=== PATIENT | female | born 1990 | race Caucasian/White ===

== ENCOUNTER 2017-12-13 21:28 | Emergency (ER) | payer SELFPAY ==
[~2017-12-13] VITALS: Ht 162.6 cm; Wt 55.0 kg
[~2017-12-13 21:28] MED LIST: BUPR2SUB PO; CLON-352 PO; IBUP600 PO
[2017-12-13 21:31] VITALS: BP 136/70; PULSE 114; RESP 18; TEMP 99.6; O2SAT 100
--- NOTE | 2017-12-13 22:09 | PD ---
HPI Chief Complaint: Skin Problem Time Seen by Provider: 21:48 Travel History International Travel<30 days: No Contact w/Intl Traveler<30days: No Traveled to known affect area: No History of Present Illness HPI Patient is a 27-year-old female presenting to emergency for evaluation of skin lesions. Patient admits to IV drug use, specifically heroin. She states for the last 2 weeks she's had lesions that initially developed on her face, spreading to her arms and legs and 2 days ago to the outer labia. Patient states that she was able to drain lesion on her labia yesterday. Since then 2 more lesions have developed. She denies any fever, chills, nausea, vomiting, abdominal pain or chest pain. Patient states that she picks at the lesions. She states that after she picks they have a honey colored crust and never completely heal. Patient states the lesions on her labia are the most painful at a 5 out of 10. The other areas are not painful. Them onset was gradual, exacerbating factors include picking. There are no alleviating factors. PFSH Past Medical History Anemia: Yes Medical other: Yes (IV drug use) Tetanus Vaccination: < 5 Years Influenza Vaccination: No ?: Not LMP: 12/03/2017 : 3 Para: 0 Past Surgical History Surgical History: No Previous Surgery Social History Alcohol Use: Yes (occasionally) Tobacco Use: No Substance Use: Yes (IV drug use opiods, heroin) Allergies-Medications (Allergen,Severity, Reaction): Coded Allergies: No Known Allergies (Unverified Adverse Reaction, Unknown, 12/13/17) Reported Meds & Prescriptions Reported Meds & Active Scripts Active Bactrim DS (Sulfamethoxazole-Trimethoprim) 800-160 Mg Tab 1 Tab PO BID Metronidazole 500 Mg Tab 500 Mg PO BID Motrin 600 Mg Tab (Ibuprofen) 600 Mg Tab 600 Mg PO Q6H PRN Reported Buprenorphine 2 mg tab (Buprenorphine HCl) 2 mg Tab 1 Mg PO QID GENERIC SUBUTEX Clonidine HCl ER (Clonidine HCl (Adhd)) 0.1 Mg Tab 0.1 Mg PO DIRECTED PRN Review of Systems Except as stated in HPI: all other systems reviewed are Neg Skin: Positive Lumps, Positive Lesions Physical Exam Narrative GENERAL: Well-developed, well-nourished, alert female. Presenting in no acute distress. SKIN: Warm and dry. Several crusted lesions to face and arms and various stages of healing with honey colored crust. No induration or drainage noted. No warmth noted. Right labia has a drink, no induration, erythema or warmth. There is no fluctuance noted. HEAD: Atraumatic. Normocephalic. EYES: Pupils equal and round. No scleral icterus. No injection or drainage. ENT: No nasal bleeding or discharge. Mucous membranes pink and moist. NECK: Trachea midline. No JVD. CARDIOVASCULAR: Tachycardic. RESPIRATORY: No accessory muscle use. Clear to auscultation. Breath sounds equal bilaterally. GASTROINTESTINAL: Abdomen soft, non-tender, nondistended. Hepatic and splenic margins not palpable. MUSCULOSKELETAL: Extremities without clubbing, cyanosis, or edema. No obvious deformities. NEUROLOGICAL: Awake and alert. No obvious cranial nerve deficits. Motor grossly within normal limits. Five out of 5 muscle strength in the arms and legs. Normal speech. PSYCHIATRIC: Appropriate mood and affect; insight and judgment normal. Data Data Last Documented VS Vital Signs Date Time Temp Pulse Resp B/P (MAP) Pulse Ox O2 Delivery O2 Flow Rate FiO2 12/13/17 22:47 12/13/17 22:32 98.9 95 16 100 Room Air Orders Orders Sulfamet-Trimeth Ds 800-160 Mg (Bactrim (12/13/17 22:45) Metronidazole (Flagyl) (12/13/17 22:45) Ed Discharge Order (12/13/17 22:43) [facility] Medical Decision Making Medical Screen Exam Complete: Yes Emergency Medical Condition: Yes Interpretation(s) Vital Signs Date Time Temp Pulse Resp B/P (MAP) Pulse Ox O2 Delivery O2 Flow Rate FiO2 12/13/17 21:31 99.6 114 18 136/70 (92) 100 Room Air Differential Diagnosis Cellulitis versus abscess versus impetigo versus folliculitis versus other Narrative Course Patient is a 27-year-old female presenting for evaluation of multiple skin lesions. Patient was tachycardic on arrival, she was anxious about coming in. Physical examination appears consistent with impetigo. During the examination she also reported a fishy smelling vaginal discharge for the last 2-3 days, she declined formal pelvic exam but requested metronidazole. There was no significant fluctuance or erythema noted to the labia and an I&D was deferred. Patient will be placed on oral antibiotics at this time. She was encouraged to avoid picking at lesions. She was advised to wash with soap and water only and apply topical abx ointment BID. She was encouraged to return to the Ed for any new or worsening symptoms. Additionally patient should follow up with a PCP or at the [facility]. Pt verbalized understanding. Pt is stable for discharge. VS reassessed prior to discharge and HR is normal. Diagnosis Primary Impression: Impetigo Additional Impression: Vaginal discharge Referrals: [facility] Primary Care Physician [facility] Patient Instructions: General Instructions, Impetigo (ED) Additional Instructions: Follow-up with a primary doctor or at the [facility] Complete full course of antibiotics as prescribed Avoid alcohol while taking metronidazole Return to emergency department for any new or worsening symptoms May apply warm compress to labia Med/Other Pt SpecificInfo: Prescription(s) given Scripts Mupirocin Topical (Mupirocin Topical) 2 % Oint 1 APPLIC TOPICAL BID for Mgmt Bacterial Infection, #22 GM 0 Refills Prov: Bernadine Reyes 12/13/17 Sulfamethoxazole-Trimethoprim (Bactrim DS) 800-160 Mg Tab 1 TAB PO BID for Infection, #20 TAB 0 Refills Prov: Bernadine Reyes 12/13/17 Metronidazole (Metronidazole) 500 Mg Tab 500 MG PO BID for Infection, #14 TAB 0 Refills Prov: Bernadine Reyes 12/13/17 Disposition: 01 DISCHARGE HOME Condition: Stable Bernadine Reyes Dec 13, 2017 22:09
[2017-12-13 22:32] VITALS: PULSE 95; RESP 16; TEMP 98.9; O2SAT 100
[2017-12-13] MEDS ORDERED: DALBAVANCIN INJ 1,500 MG in DEXTROSE 5% IN WATE 500 ML INJ 500 ML IV STA ×2 (22:42)
[2017-12-13] MEDS ORDERED: BACT800T5 PO (22:43)
[2017-12-13] MEDS ORDERED: METR1TAB76 PO (22:43)
[2017-12-13] MEDS ORDERED: metroNIDAZOLE 500 MG TAB PO ONE (22:45)
[2017-12-13] MEDS ORDERED: SULFAMETHOXAZOLE-TRIMETHOPRIM DS 800-160 MG TAB PO ONE (22:45)
[2017-12-13] MEDS ORDERED: MUPI2OIN TOPICAL (22:52)
== END 2017-12-13 22:57 | disposition home or self-care (01) ==
LOC: NEPD 21:28
DX: L01.00 Impetigo, unspecified (principal); N89.8 Other specified noninflammatory disorders of vagina; R00.0 Tachycardia, unspecified; D64.9 Anemia, unspecified; Z79.899 Other long term (current) drug therapy
CPT/HCPCS: 99283

== ENCOUNTER 2017-12-27 11:36 | Emergency (ER) | payer OTHER ==
[~2017-12-27] VITALS: Ht 162.6 cm; Wt 48.0 kg
[~2017-12-27 11:36] MED LIST changes: +BACT800T5 PO; +METR1TAB76 PO; +MUPI2OIN TOPICAL
[2017-12-27 11:44] VITALS: BP 120/81; PULSE 86; RESP 15; TEMP 98; O2SAT 99
--- NOTE | 2017-12-27 12:12 | PD ---
HPI Chief Complaint: Psychiatric Symptoms Time Seen by Provider: 12:02 Travel History International Travel<30 days: No Contact w/Intl Traveler<30days: No Traveled to known affect area: No History of Present Illness HPI The patient is a 27-year-old female who presents to the emergency department via [facility]'s office as a Watson act. The patient apparently made comments that she wishes she could and that she was withdrawing from heroin. The patient states she does have a history of previous suicidal thoughts, denies any actual suicide plan. She does have a history of heroin abuse, last used heroin 24 hours ago. She has been to rehabilitation twice in the past, last rehabilitation stent was in August. She denies any alcohol ingestion. She denies any hallucinations or delusions. Symptoms are moderate. She denies any current nausea, vomiting, diarrhea, or diaphoresis. PFSH Past Medical History Anemia: Yes Anxiety: Yes Diminished Hearing: No Psychiatric: Yes Tetanus Vaccination: < 5 Years Influenza Vaccination: No ?: Unknown LMP: 11/28/17 : 3 Para: 1 : 2 Past Surgical History Surgical History: No Previous Surgery Social History Alcohol Use: Yes (occasionally) Tobacco Use: Yes Substance Use: Yes (IV drug use opiods, heroin) Allergies-Medications (Allergen,Severity, Reaction): Coded Allergies: No Known Allergies (Verified Allergy, Unknown, 12/27/17) Reported Meds & Prescriptions Reported Meds & Active Scripts Active No Active Prescriptions or Reported Medications Review of Systems Except as stated in HPI: all other systems reviewed are Neg General / Constitutional: No: Fever HENT: No: Rhinorrhea Cardiovascular: No: Chest Pain or Discomfort, Diaphoresis Respiratory: No: Shortness of Breath Gastrointestinal: No: Nausea, Vomiting, Abdominal Pain Musculoskeletal: No: Weakness Psychiatric: Positive: Suicidal Ideations, Substance Abuse Physical Exam Narrative GENERAL: Awake, alert, pleasant 27-year-old female who appears her stated age is in no acute respiratory distress. SKIN: Focused skin assessment warm/dry. HEAD: Atraumatic. Normocephalic. EYES: Pupils equal and round. 4 mm bilateral and reactive. ENT: No nasal bleeding or discharge. Mucous membranes pink and moist. NECK: Trachea midline. No JVD. CARDIOVASCULAR: Regular rate and rhythm. No murmur appreciated. RESPIRATORY: No accessory muscle use. Clear to auscultation. Breath sounds equal bilaterally. MUSCULOSKELETAL: No obvious deformities. No clubbing. No cyanosis. No edema. NEUROLOGICAL: Awake and alert. No obvious cranial nerve deficits. Motor grossly within normal limits. Normal speech. Nonfocal. Oriented 4. PSYCHIATRIC: Appropriate mood and affect; insight and judgment normal. Data Data Last Documented VS Vital Signs Date Time Temp Pulse Resp B/P (MAP) Pulse Ox O2 Delivery O2 Flow Rate FiO2 12/27/17 11:45 86 15 12/27/17 11:44 98.0 120/81 (94) 99 Orders Orders Complete Blood Count With Diff (12/27/17 12:03) Comprehensive Metabolic Panel (12/27/17 12:03) Thyroid Stimulating Hormone (12/27/17 12:03) Psych Screen (12/27/17 12:03) Drug Screen, Random Urine (12/27/17 12:03) Alcohol (Ethanol) (12/27/17 12:03) Free T3 (12/27/17 13:08) Free Thyroxine (T4) (12/27/17 13:08) Labs Laboratory Tests Test 12/27/17 12:00 White Blood Count 3.4 TH/MM3 Red Blood Count 4.84 MIL/MM3 Hemoglobin 13.2 GM/DL Hematocrit 40.4 % Mean Corpuscular Volume 83.4 FL Mean Corpuscular Hemoglobin 27.3 PG Mean Corpuscular Hemoglobin Concent 32.7 % Red Cell Distribution Width 13.5 % Platelet Count 294 TH/MM3 Mean Platelet Volume 8.8 FL Neutrophils (%) (Auto) 62.3 % Lymphocytes (%) (Auto) 27.4 % Monocytes (%) (Auto) 9.3 % Eosinophils (%) (Auto) 0.2 % Basophils (%) (Auto) 0.8 % Neutrophils # (Auto) 2.1 TH/MM3 Lymphocytes # (Auto) 0.9 TH/MM3 Monocytes # (Auto) 0.3 TH/MM3 Eosinophils # (Auto) 0.0 TH/MM3 Basophils # (Auto) 0.0 TH/MM3 CBC Comment DIFF FINAL Differential Comment Blood Urea Nitrogen 9 MG/DL Creatinine 0.83 MG/DL Random Glucose 104 MG/DL Total Protein 9.1 GM/DL Albumin 3.9 GM/DL Calcium Level 9.7 MG/DL Alkaline Phosphatase 73 U/L Aspartate Amino Transf (AST/SGOT) 44 U/L Alanine Aminotransferase (ALT/SGPT) 55 U/L Total Bilirubin 0.2 MG/DL Sodium Level 138 MEQ/L Potassium Level 3.9 MEQ/L Chloride Level 105 MEQ/L Carbon Dioxide Level 24.7 MEQ/L Anion Gap 8 MEQ/L Estimat Glomerular Filtration Rate 81 ML/MIN Free Thyroxine 1.33 NG/DL Free Triiodothyronine (T3) pg/dL 2.01 PG/ML Thyroid Stimulating Hormone 3rd Gen 0.124 uIU/ML Urine Opiates Screen POS Urine Barbiturates Screen NEG Urine Amphetamines Screen NEG Urine Benzodiazepines Screen NEG Urine Cocaine Screen POS Urine Cannabinoids Screen NEG Ethyl Alcohol Level LESS THAN 3 MG/DL MDM Medical Decision Making Medical Screen Exam Complete: Yes Emergency Medical Condition: Yes Medical Record Reviewed: Yes Interpretation(s) Laboratory Tests Test 12/27/17 12:00 White Blood Count 3.4 TH/MM3 Red Blood Count 4.84 MIL/MM3 Hemoglobin 13.2 GM/DL Hematocrit 40.4 % Mean Corpuscular Volume 83.4 FL Mean Corpuscular Hemoglobin 27.3 PG Mean Corpuscular Hemoglobin Concent 32.7 % Red Cell Distribution Width 13.5 % Platelet Count 294 TH/MM3 Mean Platelet Volume 8.8 FL Neutrophils (%) (Auto) 62.3 % Lymphocytes (%) (Auto) 27.4 % Monocytes (%) (Auto) 9.3 % Eosinophils (%) (Auto) 0.2 % Basophils (%) (Auto) 0.8 % Neutrophils # (Auto) 2.1 TH/MM3 Lymphocytes # (Auto) 0.9 TH/MM3 Monocytes # (Auto) 0.3 TH/MM3 Eosinophils # (Auto) 0.0 TH/MM3 Basophils # (Auto) 0.0 TH/MM3 CBC Comment DIFF FINAL Differential Comment Blood Urea Nitrogen 9 MG/DL Creatinine 0.83 MG/DL Random Glucose 104 MG/DL Total Protein 9.1 GM/DL Albumin 3.9 GM/DL Calcium Level 9.7 MG/DL Alkaline Phosphatase 73 U/L Aspartate Amino Transf (AST/SGOT) 44 U/L Alanine Aminotransferase (ALT/SGPT) 55 U/L Total Bilirubin 0.2 MG/DL Sodium Level 138 MEQ/L Potassium Level 3.9 MEQ/L Chloride Level 105 MEQ/L Carbon Dioxide Level 24.7 MEQ/L Anion Gap 8 MEQ/L Estimat Glomerular Filtration Rate 81 ML/MIN Free Thyroxine 1.33 NG/DL Free Triiodothyronine (T3) pg/dL 2.01 PG/ML Thyroid Stimulating Hormone 3rd Gen 0.124 uIU/ML Urine Opiates Screen POS Urine Barbiturates Screen NEG Urine Amphetamines Screen NEG Urine Benzodiazepines Screen NEG Urine Cocaine Screen POS Urine Cannabinoids Screen NEG Ethyl Alcohol Level LESS THAN 3 MG/DL Differential Diagnosis Differential diagnosis includes substance induced mood disorder, adjustment reaction, stress reaction, depressive disorder NOS, mood disorder. Narrative Course Labs are drawn and sent. Psychiatric evaluation was ordered. TSH was low, therefore, free T3 and free T4 were ordered. CT 3 was low, however, free T4 was normal. Tox screen is positive for cocaine and opiates. The patient is medically clear to be provided by psychiatry. Disposition as per psych. Diagnosis Primary Impression: Mood disorder Scripts No Active Prescriptions or Reported Meds Condition: Baldo Mariee MD Dec 27, 2017 12:12
[2017-12-27 12:38] LABS: AUTOMATED NEUTROPHIL # 2.1 TH/MM3 (1.8-7.7); BASOPHIL % 0.8 % (0.0-2.0); EOSINOPHIL % 0.2 % (0.0-4.0); HEMATOCRIT 40.4 % (35.0-46.0); HEMOGLOBIN 13.2 GM/DL (11.6-15.3); LYMPH % 27.4 % (9.0-44.0); LYMPHOCYTE # 0.9 TH/MM3 (1.0-4.8); MEAN CELL VOLUME 83.4 FL (80.0-100.0); MEAN CORPUSCULAR HEMOGLOBIN 27.3 PG (27.0-34.0); MEAN CORPUSCULAR HGB CONC 32.7 % (32.0-36.0); MEAN PLATELET VOLUME 8.8 FL (7.0-11.0); MONO % 9.3 % (0.0-8.0); MONOCYTE # 0.3 TH/MM3 (0-0.9); NEUT % 62.3 % (16.0-70.0); PLATELET COUNT 294 TH/MM3 (150-450); RED BLOOD COUNT 4.84 MIL/MM3 (4.00-5.30); RED CELL DISTRIBUTION WIDTH 13.5 % (11.6-17.2); WHITE BLOOD COUNT 3.4 TH/MM3 (4.0-11.0)
[2017-12-27 12:49] LABS: ALT (GPT) 55 U/L (10-53)
[2017-12-27 12:58] LABS: ALKALINE PHOSPHATASE 73 U/L (45-117); TOTAL BILIRUBIN ADULT 0.2 MG/DL (0.2-1.0); TOTAL PROTEIN 9.1 GM/DL (6.4-8.2)
[2017-12-27 13:10] LABS: ALBUMIN 3.9 GM/DL (3.4-5.0); AST (GOT) 44 U/L (15-37); BICARBONATE 24.7 MEQ/L (21.0-32.0); BLOOD UREA NITROGEN 9 MG/DL (7-18); CALCIUM 9.7 MG/DL (8.5-10.1); CHLORIDE 105 MEQ/L (98-107); CREATININE 0.83 MG/DL (0.50-1.00); GLOMERULAR FILTRATION RATE 81 ML/MIN (>89); GLUCOSE,RANDOM 104 MG/DL (74-106); SODIUM (NA) 138 MEQ/L (136-145)
[2017-12-27 13:37] LABS: FREE T3 2.01 PG/ML (2.18-3.98); FREE T4 1.33 NG/DL (0.76-1.46)
[2017-12-27 15:00] VITALS: BP 120/81; PULSE 77; RESP 16; TEMP 97.8; O2SAT 99
[2017-12-27 20:01] VITALS: BP 138/81; PULSE 100; RESP 18; TEMP 98.2; O2SAT 100
[2017-12-27 23:18] VITALS: BP 100/62; PULSE 100; RESP 18; TEMP 98.3; O2SAT 100
[2017-12-28 06:32] VITALS: BP 111/66; PULSE 105; RESP 16; TEMP 98.1; O2SAT 100
[2017-12-28 10:58] VITALS: BP 109/74; PULSE 92; RESP 18; O2SAT 98
--- NOTE | 2017-12-28 12:29 | PD ---
Physical Exam Date Seen by Provider: Dec 28, 2017 Time Seen by Provider: 12:29 Narrative 27 y/o female previously medically cleared for psychiatric evaluation was seen by psychiatric staff and is felt to need transfer to the [facility] for further treatment. Patient remains medically stable at this time Data Data Last Documented VS Vital Signs Date Time Temp Pulse Resp B/P (MAP) Pulse Ox O2 Delivery O2 Flow Rate FiO2 12/28/17 10:58 92 18 109/74 (86) 98 Room Air 12/28/17 06:32 98.1 Orders Orders Complete Blood Count With Diff (12/27/17 12:03) Comprehensive Metabolic Panel (12/27/17 12:03) Thyroid Stimulating Hormone (12/27/17 12:03) Psych Screen (12/27/17 12:03) Drug Screen, Random Urine (12/27/17 12:03) Alcohol (Ethanol) (12/27/17 12:03) Free T3 (12/27/17 13:08) Free Thyroxine (T4) (12/27/17 13:08) Diet Regular Basic (12/27/17 Dinner) Diet Regular Basic (12/28/17 Breakfast) Diet Regular Basic (12/28/17 Lunch) Labs Laboratory Tests Test 12/27/17 12:00 White Blood Count 3.4 TH/MM3 Red Blood Count 4.84 MIL/MM3 Hemoglobin 13.2 GM/DL Hematocrit 40.4 % Mean Corpuscular Volume 83.4 FL Mean Corpuscular Hemoglobin 27.3 PG Mean Corpuscular Hemoglobin Concent 32.7 % Red Cell Distribution Width 13.5 % Platelet Count 294 TH/MM3 Mean Platelet Volume 8.8 FL Neutrophils (%) (Auto) 62.3 % Lymphocytes (%) (Auto) 27.4 % Monocytes (%) (Auto) 9.3 % Eosinophils (%) (Auto) 0.2 % Basophils (%) (Auto) 0.8 % Neutrophils # (Auto) 2.1 TH/MM3 Lymphocytes # (Auto) 0.9 TH/MM3 Monocytes # (Auto) 0.3 TH/MM3 Eosinophils # (Auto) 0.0 TH/MM3 Basophils # (Auto) 0.0 TH/MM3 CBC Comment DIFF FINAL Differential Comment Blood Urea Nitrogen 9 MG/DL Creatinine 0.83 MG/DL Random Glucose 104 MG/DL Total Protein 9.1 GM/DL Albumin 3.9 GM/DL Calcium Level 9.7 MG/DL Alkaline Phosphatase 73 U/L Aspartate Amino Transf (AST/SGOT) 44 U/L Alanine Aminotransferase (ALT/SGPT) 55 U/L Total Bilirubin 0.2 MG/DL Sodium Level 138 MEQ/L Potassium Level 3.9 MEQ/L Chloride Level 105 MEQ/L Carbon Dioxide Level 24.7 MEQ/L Anion Gap 8 MEQ/L Estimat Glomerular Filtration Rate 81 ML/MIN Free Thyroxine 1.33 NG/DL Free Triiodothyronine (T3) pg/dL 2.01 PG/ML Thyroid Stimulating Hormone 3rd Gen 0.124 uIU/ML Urine Opiates Screen POS Urine Barbiturates Screen NEG Urine Amphetamines Screen NEG Urine Benzodiazepines Screen NEG Urine Cocaine Screen POS Urine Cannabinoids Screen NEG Ethyl Alcohol Level LESS THAN 3 MG/DL [facility] Medical Record Reviewed: Yes Supervised Visit with DEANGELO: Yes Narrative Course 27 y/o female previously medically cleared for psychiatric evaluation was seen by psychiatric staff and is felt to need transfer to the [facility] for further treatment. Patient remains medically stable at this time Diagnosis Primary Impression: Mood disorder Scripts No Active Prescriptions or Reported Meds Disposition: 70 TRANSFER TO OTHER FACILITY Condition: Stable Shreyas Ruffin Dec 28, 2017 12:29
[2017-12-28 12:59] VITALS: BP 106/68; PULSE 92; RESP 20; O2SAT 95
== END 2017-12-28 16:45 | disposition short-term general hospital (02) ==
LOC: NEPD 11:36 → NEPJ 12-28 16:45
DX: F39 Unspecified mood [affective] disorder (principal); F19.90 Other psychoactive substance use, unspecified, uncomplicated; Z72.0 Tobacco use
CPT/HCPCS: 80053; 80307; 84439; 84443; 84481; 85025; 99285